=== PATIENT | male | born 1980 | race Caucasian/White ===

== ENCOUNTER 2019-03-18 17:06 | Emergency (ER) | payer BC ==
[~2019-03-18] VITALS: Ht 172.7 cm; Wt 77.1 kg
[2019-03-18 17:20] VITALS: BP 124/80; Ht 172.7 cm; Wt 77.1 kg
== END 2019-03-18 18:24 | disposition home or self-care (01) ==
LOC: ED 17:06
DX: S01.81XA Laceration without foreign body of other part of head, initial encounter (principal); V49.88XA Car occupant (driver) (passenger) injured in other specified transport accidents, initial encounter; Y93.I9 Activity, other involving external motion; Y92.413 State road as the place of occurrence of the external cause; Y99.8 Other external cause status
CPT/HCPCS: 90715